=== PATIENT | male | born 1990 | race Caucasian/White ===

== ENCOUNTER 2019-05-26 14:50 | Emergency (ER) | payer BC, MEDICAID ==
[~2019-05-26] VITALS: Ht 177.8 cm; Wt 136.4 kg
[~2019-05-26 14:50] MED LIST: ANTI14DR2 EACH EAR; NAPR-232 PO; NO HOME MEDS; OMEP-84 PO
[2019-05-26 14:58] VITALS: BP 132/85
[2019-05-26] MEDS ORDERED: CEPH250T PO (15:38)
== END 2019-05-26 15:46 | disposition home or self-care (01) ==
LOC: ER 14:51
DX: L03.211 Cellulitis of face (principal); K21.9 Gastro-esophageal reflux disease without esophagitis; G47.30 Sleep apnea, unspecified; E11.9 Type 2 diabetes mellitus without complications; G89.29 Other chronic pain; F41.9 Anxiety disorder, unspecified; F10.99 Alcohol use, unspecified with unspecified alcohol-induced disorder; F12.90 Cannabis use, unspecified, uncomplicated; Z56.0 Unemployment, unspecified; Z98.84 Bariatric surgery status; Z79.899 Other long term (current) drug therapy; Y90.9 Presence of alcohol in blood, level not specified
CPT/HCPCS: 99283

== ENCOUNTER 2022-11-17 18:53 | Emergency (ER) | payer OTHER, MEDICAID ==
[~2022-11-17] VITALS: Ht 177.8 cm; Wt 122.7 kg
[2022-11-17 19:23] VITALS: BP 136/79
[2022-11-17] MEDS ORDERED: acetaminophen 325mg tablet PO ONE (20:20)
[2022-11-17] MEDS ORDERED: ORPH100T2 PO (20:34)
== END 2022-11-17 20:47 | disposition home or self-care (01) ==
LOC: ER 18:55
DX: S16.1XXA Strain of muscle, fascia and tendon at neck level, initial encounter (principal); G89.29 Other chronic pain; M54.9 Dorsalgia, unspecified; E11.9 Type 2 diabetes mellitus without complications; K21.9 Gastro-esophageal reflux disease without esophagitis; F12.10 Cannabis abuse, uncomplicated; Z56.0 Unemployment, unspecified; F31.9 Bipolar disorder, unspecified; X58.XXXA Exposure to other specified factors, initial encounter; Y93.89 Activity, other specified; Y92.89 Other specified places as the place of occurrence of the external cause; Y99.8 Other external cause status
CPT/HCPCS: 99283

== ENCOUNTER 2022-11-28 18:53 | Emergency (ER) | payer MEDICAID ==
[~2022-11-28] VITALS: Ht 177.8 cm; Wt 122.7 kg
[~2022-11-28 18:53] MED LIST changes: +ORPH100T2 PO
[2022-11-28 20:44] VITALS: BP 151/99
[2022-11-28] MEDS ORDERED: ketorolac trometh inj. 60 MG/2 ML VIAL IM ONE (22:25)
== END 2022-11-28 23:13 | disposition home or self-care (01) ==
LOC: ER 18:53
DX: M54.59 Other low back pain (principal); G89.29 Other chronic pain; M54.9 Dorsalgia, unspecified; E11.9 Type 2 diabetes mellitus without complications; K21.9 Gastro-esophageal reflux disease without esophagitis; F41.9 Anxiety disorder, unspecified; F12.10 Cannabis abuse, uncomplicated; Z59.00 Homelessness unspecified
CPT/HCPCS: 96372; 99283; J1885

== ENCOUNTER 2023-08-30 02:48 | Emergency (ER) | payer MEDICAID ==
[~2023-08-30] VITALS: Ht 177.8 cm; Wt 125.4 kg
[~2023-08-30 02:48] MED LIST changes: -ORPH100T2 PO; +ORPH100T4 PO
[2023-08-30 02:51] VITALS: BP 145/105; PULSE 78; RESP 16; TEMP 98.2; O2SAT 98
[2023-08-30 03:15] LABS: EOSINOPHILS % (AUTO) 0.6 % (0-6); LYMPHOCYTES # (AUTO) 1.7 X10'3 (1.1-4.8); LYMPHOCYTES % (AUTO) 27.6 % (21-51); MONOCYTES # (AUTO) 0.5 X10'3 (0-0.9); NEUTROPHILS # (AUTO) 3.9 X10'3 (1.8-7.7); PLATELET COUNT 138 X10'3 (140-440); WHITE BLOOD COUNT 6.2 X10'3 (4.5-11.0)
[2023-08-30 03:17] LABS: BASOPHILS % (AUTO) 0.3 % (0-1); HEMATOCRIT 46.9 % (42.0-52.0); HEMOGLOBIN 16.2 g/dl (14.0-17.9); MEAN CORPUSCULAR HGB CONC 34.6 g/dL (33.0-36.5); MEAN CORPUSCULAR VOLUME 86.7 FL (78-98); MEAN PLATELET VOLUME 8.7 FL (7.4-10.4); MONOCYTES % (AUTO) 8.3 % (2-12); NEUTROPHILS % (AUTO) 63.2 % (42-75); RED BLOOD COUNT 5.41 X10'6 (4.70-6.10); RED CELL DISTRIBUTION WIDTH 13.4 % (11.5-14.5)
[2023-08-30 03:29] LABS: ALANINE AMINOTRANSFERASE 34 U/L (12-78); ALBUMIN 3.7 G/DL (3.4-5.0); ALBUMIN/GLOBULIN RATIO 1.2 (1.1-1.5); ALKALINE PHOSPHATASE 102 IU/L (46-116); ANION GAP 9 (8-16); ASPARTATE AMINO TRANSFERASE 21 U/L (10-37); BILIRUBIN,TOTAL 0.9 MG/DL (0.1-1.0); BLOOD UREA NITROGEN 11 MG/DL (7-18); BUN/CREATININE RATIO 11.6 (10.0-20.0); CALCIUM 8.7 MG/DL (8.5-10.1); CHLORIDE 103 MMOL/L (99-107); CREATININE 0.95 MG/DL (0.60-1.10); GLUCOSE 104 MG/DL (70-104); LIPASE 40 U/L (16-77); POTASSIUM 3.3 MMOL/L (3.5-5.1); SODIUM 138 MMOL/L (135-145); TOTAL CARBON DIOXIDE 25.7 MMOL/L (24-32); TOTAL PROTEIN 6.9 G/DL (6.4-8.2); eCRCL 115 ML/MIN; eGFR > 90 ML/MIN
[2023-08-30 04:32] LABS: BILIRUBIN,URINE SMALL (Neg); CLARITY,URINE SLIGHTLY CLOUDY (Clear); GLUCOSE, URINE NEGATIVE (Neg); KETONES,URINE NEGATIVE (Neg); LEUKOCYTE ESTERASE ,URINE NEGATIVE (Neg); NITRITES, URINE NEGATIVE (Neg); OCCULT BLOOD,URINE NEGATIVE (Neg); PH,URINE 5.5 (4.8-8.0); PROTEIN,URINE 30 mg/dl (Neg)
[2023-08-30 04:34] LABS: UA COLLECTION TYPE CLN CATCH MIDSTREAM
[2023-08-30 04:35] LABS: COLOR,URINE DARK YELLOW (Yellow)
[2023-08-30 04:45] LABS: BACTERIA,URINE FEW /HPF (Neg); MUCUS STRANDS NONE SEEN /LPF (Neg); RBC,URINE 0-2 /HPF (0-2); SQUAMOUS EPITHELIAL CELL,UR NONE SEEN /LPF (FEW); WBC,URINE NONE SEEN /HPF (0-4)
[2023-08-30 04:46] LABS: CAL OXALATE CRYSTALS 3+ /HPF (NEGATIVE); SPERM FEW /HPF (NEGATIVE)
== END 2023-08-30 06:08 | disposition left against medical advice (07) ==
LOC: ER 02:49
DX: R11.2 Nausea with vomiting, unspecified (principal); Z53.21 Procedure and treatment not carried out due to patient leaving prior to being seen by health care provider
CPT/HCPCS: 80053; 81001; 83690; 85025; 99281

== ENCOUNTER 2025-06-18 07:43 | Emergency (ER) | payer BC, MEDICAID ==
[~2025-06-18] VITALS: Ht 177.8 cm; Wt 128.4 kg
[2025-06-18 08:06] LABS: MEAN PLATELET VOLUME 8.6 FL (7.4-10.4); RED CELL DISTRIBUTION WIDTH 13.7 % (11.5-14.5)
[2025-06-18 08:49] LABS: CREATININE 1.04 MG/DL (0.60-1.10); PRO BRAIN NATRIURETIC PEPTIDE < 30 PG/ML (0-125); TOTAL CARBON DIOXIDE 30.2 MMOL/L (24-32); eCRCL 103 ML/MIN; eGFR 82 ML/MIN
--- NOTE | 2025-06-18 08:49 | RADIOLOGY REPORT ---
CHEST RADIOGRAPH Indication: CP Technique: Single frontal view of the chest was obtained Comparison: None FINDINGS: Lines and Tubes: None Lungs: No focal consolidation. Pleura: No effusion. No pneumothorax. Cardiomediastinal contours: Unremarkable Bones: No acute osseous abnormality. IMPRESSION: No acute cardiopulmonary disease.
--- NOTE | 2025-06-18 08:54 | ELECTROCARDIOGRAPH REPORT ---
[facility] Test Date: 2025-06-18 Test Time: 08:51:55 Pat Name: RACHEL GRACIA Department: EMERGENCY ROOM Room: Gender: M [employer]: TAI : 1990 Requested By: ROBERT MORAN Order Number: [id number] Reading MD: Measurements Intervals [place] Rate: 75 P: 15 CO: 154 QRS: 27 QRSD: 92 T: 39 QT: 378 QTc: 423 Interpretive Statements Sinus rhythm Please click the below link to view image of tracing.
--- NOTE | 2025-06-18 09:03 | Physician Documentation ---
History of Present Illness ~ Chief Complaint: Chest Pain Stated Complaint: HEART PALP Time Seen by MD: 07:56 Primary Medical Doctor: JOHANA Source: patient Mode of Arrival: POV Exam Limitations: no limitations HPI Mr. Boss is a 35 y/o male who presents to the ED with c/o chest pain. He states that the chest pain along with palpitations started yesterday morning at 0700 when he got to work. The discomfort is in the center of his chest and does not radiate. No SOB or difficulty breathing. No leg pain or swelling. No recent travel. No history of DVT/PE. No recent cough or febrile illness. No known sick contacts. No chest trauma. Medication Reconciliation Allergies: Coded Allergies: No Known Allergies (Unverified , 06/18/25) Scheduled Naproxen (Naprosyn), 500 MG PO Q12H PRN PAIN Omeprazole* (Prilosec*), 20 MG PO DAILY, (Reported) Orphenadrine Citrate (Norflex), 1 TAB PO Q12H PRN Scheduled PRN Antipyrine/Benzocaine (Auralgan Otic Solution), 3-4 DROP EACH EAR Q1H PRN for pain Miscellaneous Medications Home Med List (No Home Medications), (Reported) Past Medical History Past Medical History: Sleep Apnea, GERD, Diabetes, Chronic Back Pain, Anxiety, Panic Disorder Past Surgical History: gastric bypass Alcohol Use: Occasionally Drug Use: marijuana Lives with: Spouse Lives In: Home Occupation: unemployed Review of Systems All Other Systems at this time: Reviewed and Negative Physical Exam Vital Signs: RN Vital Signs have been reviewed: Yes, Heart Rate: 73, Respiratory Rate: 15, BP: 160/99, Pulse Oximetry: 99, Weight: 128.400 Oxygen Flow Rate: 0 General Appearance: alert, WD/WN, no apparent distress Neck: normal inspection Respiratory: lungs clear, normal breath sounds Chest: no accessory muscle use Cardiovascular: normal peripheral pulses, regular rate, rhythm, no edema, no gallop, no JVD, no murmur Gastrointestinal: normal palpation Rectal: deferred Extremities: normal inspection Neurologic: oriented x4 Psychiatric: normal mood/affect Skin: normal color Progress Results/Orders Results/Orders Orders - ROBERT MORAN MD Chest,Single View (06/18/25 07:50) Monitor (06/18/25 07:50) Saline Lock (06/18/25 07:50) Oxygen (06/18/25 07:50) Hs Troponin I W Calculations (06/18/25 10:50) Completed Orders - ROBERT MORAN MD Chest,Single View (06/18/25 07:50) Cbc/Diff (06/18/25 07:50) BMP (06/18/25 07:50) PBNP (06/18/25 07:50) Electrocardiogram (06/18/25 07:50) Hs Troponin I W Calculations (06/18/25 07:50) Hs Troponin I W Calculations (06/18/25 09:50) Vital Signs 06/18/25 06/18/25 06/18/25 06/18/25 07:46 07:55 08:02 09:22 Pulse 79 73 69 Resp 15 15 15 B/P (MAP) 166/101 160/99 (119) 126/71 (89) Pulse Ox 99 99 99 O2 Flow Rate 0 0 Laboratory Tests Test 06/18/25 07:57 06/18/25 09:56 White Blood Count 4.7 Red Blood Count 5.26 Hemoglobin 16.4 Hematocrit 46.8 Mean Corpuscular Volume 89.0 Mean Corpuscular Hemoglobin 31.2 H Mean Corpuscular Hemoglobin Concent 35.0 Red Cell Distribution Width 13.7 Platelet Count 149 Mean Platelet Volume 8.6 Neutrophils (%) (Auto) 60.7 Lymphocytes (%) (Auto) 29.4 Monocytes (%) (Auto) 7.8 Eosinophils (%) (Auto) 1.6 Basophils (%) (Auto) 0.5 Neutrophils # (Auto) 2.9 Lymphocytes # (Auto) 1.4 Monocytes # (Auto) 0.4 Eosinophils # (Auto) 0.1 Basophils # (Auto) 0.0 CBC Comment Sodium Level 141 Potassium Level 3.7 Chloride Level 105 Carbon Dioxide Level 30.2 Anion Gap 6 L Blood Urea Nitrogen 12 Creatinine 1.04 Estimated GFR/1.73 m2 82 BUN/Creatinine Ratio 11.5 Glucose Level 115 H Calcium Level 8.6 Troponin I High Sensitivity 22 18 Pro-B-Type Natriuretic Peptide < 30 Albumin 3.7 Chemistry Comments Troponin I High Sens Percent Delta 18 Troponin I Hi Sens Absolute Change -4 EKG/XRAY/CT/US/VASC/MRI EKG : Intepreting Monitor?: Yes Indication: chest pain EKG Rate: 75 EKG: NSR EKG Blocks: none [place]: normal Hypertrophy: none Additional Comment EKG (as interpreted by me): Time obtained: 850 Time interpreted by me: 851 Rate: 75 Rhythm: NSR [place]: Normal Intervals: Normal ST waves: No abnormality Impression: NSR Heart Score: Heart Score Response (Comments) Value History Slightly Suspicious 0 EKG Normal 0 Age <45 0 Risk Factors 1 or 2 risk factors 1 Troponin 1-2 x's Normal limit 1 Total 2 Medical Decision Making Heart Score: 2 Differential Dx:Considerations: Include: angina, aortic dissection, chest wall pain, esophageal reflux/spasm, gastritis, myocardial infarction, pericarditis, pleuritis, pneumonia, pneumothorax, pulmonary embolus Additional Information Mr. Serrano is a 35 y/o male who present with c/o anterior, nonradiating, chest pain. While here in the ED, he remained hemodynamically normal with ABC's intact and in NAD. He is afebrile and nontoxic. I reviewed his EKG and it shows NSR and is without signs suggestive of acute myocardial injury or ischemia. I reviewed his CXR and there are no radiographic signs to suggest an acute cardiopulmonary process. No signs suggestive of increased pulmonary vascular congestion. TnI slightly elevated at 20; repeat flat. I have low clinical suspicion for ACS. CXR without an obvious pneumothorax. PERC negative. No new oxygen requirement. Nothing points to an impending acute thoracic aorta emergency. He is safe for d/c home with outpatient follow-up. He was given follow-up and return instructions. He voiced understanding and agreement with d/c instructions. Departure Disposition: HOME / SELF CARE / HOMELESS Impression: Primary Impression: Chest pain Condition: Improved Discharge Instructions: Nonspecific Chest Pain, Adult Referrals: NO PRIMARY CARE PROVIDER (PCP) Education Educated: Patient Educated regarding: diagnosis, treatment Signature Scribe Signature: N/A Attestation: N/A ROBERT MORAN MD Jun 18, 2025 09:03
[2025-06-18 10:55] VITALS: BP 145/98; PULSE 76; RESP 15; O2SAT 99
== END 2025-06-18 10:58 | disposition home or self-care (01) ==
LOC: ER 07:43
DX: R07.9 Chest pain, unspecified (principal); R06.02 Shortness of breath; K21.9 Gastro-esophageal reflux disease without esophagitis; E11.9 Type 2 diabetes mellitus without complications; G47.30 Sleep apnea, unspecified; F12.90 Cannabis use, unspecified, uncomplicated; F41.9 Anxiety disorder, unspecified; Z98.84 Bariatric surgery status
CPT/HCPCS: 36415; 71045; 80048; 83880; 84484; 85025; 93005; 99285